=== PATIENT | female | born 1970 | race Caucasian/White ===

== ENCOUNTER → 2016-04-16 | Outpatient (CLI) | payer BC ==
[~2016-04-16] MED LIST: ALBU2.5V4 NEB; ASCO500T7 PO; AZIT250T5 PO; CETI10CA PO; CTLP20T PO; METO-274 PO
[2016-04-16 13:25] LABS: BASOPHILS % (AUTO) 0 % (0-2); EOSINOPHILS # (AUTO) 0.1 10^3uL; EOSINOPHILS % (AUTO) 2 % (0-4); LYMPHOCYTES # (AUTO) 2.4 X10^3; MEAN CORPUSCULAR HEMOGLOBIN 30.1 PG (26.0-34.0); MEAN CORPUSCULAR HGB CONC 33.7 g/dL (31.0-37.0); MEAN CORPUSCULAR VOLUME 89 FL (80-100); MEAN PLATELET VOLUME 9.8 FL (6.0-9.5); MONOCYTES # (AUTO) 0.3 X10^3; MONOCYTES % (AUTO) 5 % (3-11); NEUTROPHILS # (AUTO) 3.5 X10^3; NEUTROPHILS % (AUTO) 55 % (51-67); PLATELET COUNT 209 10^3uL (150-450); WHITE BLOOD COUNT 6.36 10^3uL (4.0-11.0)
[2016-04-16 13:36] LABS: ALBUMIN 4.1 g/dL (3.4-5.0); ANION GAP 12.7 MEQ/L (3-15); CALCULATED IONIZED CALCIUM 3.9 mg/dL (3.8-4.6); TOTAL PROTEIN 7.3 g/dL (6.4-8.5)
[2016-04-18 15:53] LABS: HEP C COPIES ML Not Detected
== END ==
LOC: LAB 12:41
PROVIDERS: ATTEND Nurse Practitioner
DX: B18.2 Chronic viral hepatitis C (principal); Z79.899 Other long term (current) drug therapy
CPT/HCPCS: 36415; 80053; 85025; 85610; 87522

== ENCOUNTER → 2016-05-24 | Outpatient (REF) | payer BC ==
[2016-05-24 16:30] LABS: ANION GAP 14.3 MEQ/L (3-15)
== END ==
LOC: LAB 16:06
PROVIDERS: ATTEND Family Medicine
DX: Z51.81 Encounter for therapeutic drug level monitoring (principal)
CPT/HCPCS: 80048

== ENCOUNTER → 2016-07-22 | Outpatient (CLI) | payer BC ==
[2016-07-23 14:27] LABS: HEP C COPIES ML Not Detected
== END ==
LOC: LAB 10:43
PROVIDERS: ATTEND Nurse Practitioner
DX: B18.2 Chronic viral hepatitis C (principal)
CPT/HCPCS: 36415; 87522